=== PATIENT | female | born 1970 | race Caucasian/White ===

== ENCOUNTER 2020-05-15 14:56 | Emergency (ER) | payer OTHER, BC ==
[~2020-05-15] VITALS: Ht 170.2 cm; Wt 91.0 kg
[~2020-05-15 14:56] MED LIST: ALPR-624 PO; CLON-527 PO; LEVO40CA PO; PAT0.1OS EACHEYE; RIVA20TA PO; RIZA10TA27 PO
--- NOTE | 2020-05-15 16:42 | NUR ---
md fuentes at bedside. pt reports "leaky rectum". denies any primary or gi care. pt reports white and green drainage. raulito requests a set up for rectal exam.
[2020-05-15] MEDS ORDERED: ondansetron 4mg rapidly disintigrating tab PO ONE (16:50)
[2020-05-15 18:21] VITALS: BP 144/104
== END 2020-05-15 18:22 | disposition home or self-care (01) ==
LOC: ER 14:57
DX: R15.9 Full incontinence of feces (principal); G43.909 Migraine, unspecified, not intractable, without status migrainosus; F32.9 Major depressive disorder, single episode, unspecified; F20.9 Schizophrenia, unspecified; G89.29 Other chronic pain; F12.90 Cannabis use, unspecified, uncomplicated; Z86.73 Personal history of transient ischemic attack (TIA), and cerebral infarction without residual deficits; Z86.711 Personal history of pulmonary embolism; Z98.51 Tubal ligation status; Z98.890 Other specified postprocedural states; Z72.89 Other problems related to lifestyle; Z56.0 Unemployment, unspecified; Z91.041 Radiographic dye allergy status; Z88.5 Allergy status to narcotic agent; Z88.8 Allergy status to other drugs, medicaments and biological substances; Z79.899 Other long term (current) drug therapy
CPT/HCPCS: 99284

== ENCOUNTER 2020-06-15 10:38 | Emergency (ER) | payer OTHER, BC ==
[~2020-06-15] VITALS: Ht 167.6 cm; Wt 55.3 kg
--- NOTE | 2020-06-15 11:06 | NUR ---
HAILEE SUE FRIEND [phone]
--- NOTE | 2020-06-15 11:27 | NUR ---
MD Marie is at bedside with pt
[2020-06-15] MEDS ORDERED: ALPR-624 PO ×2 (11:57→16:24)
[2020-06-15 12:07] VITALS: BP 161/104
[2020-06-15] MEDS ORDERED: ONDA4TAB6 PO (12:10)
[2020-06-15] MEDS ORDERED: ASPI-83 PO (16:09)
[2020-06-15] MEDS ORDERED: DIPH-735 PO (16:09)
[2020-06-15] MEDS ORDERED: NITR0.4T51 SL (16:10)
[2020-06-15] MEDS ORDERED: VITA1CAP PO (16:12)
[2020-06-15] MEDS ORDERED: ONDA-103 PO (16:24)
== END 2020-06-15 12:08 | disposition home or self-care (01) ==
LOC: ER 10:39
DX: F41.9 Anxiety disorder, unspecified (principal); Z00.8 Encounter for other general examination; G89.29 Other chronic pain; F31.9 Bipolar disorder, unspecified; F20.9 Schizophrenia, unspecified; G43.909 Migraine, unspecified, not intractable, without status migrainosus; F12.90 Cannabis use, unspecified, uncomplicated; Z86.73 Personal history of transient ischemic attack (TIA), and cerebral infarction without residual deficits; Z86.711 Personal history of pulmonary embolism; Z98.51 Tubal ligation status; Z72.89 Other problems related to lifestyle; Z56.0 Unemployment, unspecified; Z91.041 Radiographic dye allergy status; Z88.8 Allergy status to other drugs, medicaments and biological substances; Z79.82 Long term (current) use of aspirin; Z79.899 Other long term (current) drug therapy
CPT/HCPCS: 99285

== ENCOUNTER 2020-06-15 14:58 | Emergency (ER) | payer OTHER, BC ==
[~2020-06-15] VITALS: Ht 167.6 cm; Wt 55.3 kg
[~2020-06-15 14:58] MED LIST changes: +ONDA4TAB6 PO
[2020-06-15 15:32] LABS: BASOPHILS # (AUTO) 0.1 X10'3 (0-0.2); BASOPHILS % (AUTO) 0.8 % (0-1); EOSINOPHILS # (AUTO) 0.1 X10'3 (0-0.9); EOSINOPHILS % (AUTO) 0.7 % (0-6); HEMATOCRIT 42.8 % (35.0-45.0); HEMOGLOBIN 14.6 g/dl (12.0-16.0); LYMPHOCYTES # (AUTO) 0.9 X10'3 (1.1-4.8); LYMPHOCYTES % (AUTO) 10.5 % (21-51); MEAN CORPUSCULAR VOLUME 94.1 FL (78-98); MEAN PLATELET VOLUME 7.4 FL (7.4-10.4); MONOCYTES # (AUTO) 0.6 X10'3 (0-0.9); NEUTROPHILS # (AUTO) 7.3 X10'3 (1.8-7.7); PLATELET COUNT 390 X10'3 (140-440); RED BLOOD COUNT 4.55 X10'6 (4.20-5.60); RED CELL DISTRIBUTION WIDTH 14.3 % (11.5-14.5)
[2020-06-15 15:41] LABS: ALANINE AMINOTRANSFERASE 103 U/L (12-78); ALBUMIN 3.8 G/DL (3.4-5.0); ALKALINE PHOSPHATASE 40 IU/L (46-116); ANION GAP 13 (8-16); ASPARTATE AMINO TRANSFERASE 83 U/L (10-37); BILIRUBIN,TOTAL 0.4 MG/DL (0.1-1.0); BLOOD UREA NITROGEN 10 MG/DL (7-18); BUN/CREATININE RATIO 7.8 (6.6-38.0); CALCIUM 10.1 MG/DL (8.5-10.1); CHLORIDE 107 MMOL/L (99-107); CREATININE 1.29 MG/DL (0.40-0.90); GLUCOSE 130 MG/DL (70-104); POTASSIUM 3.6 MMOL/L (3.5-5.1); SODIUM 140 MMOL/L (135-145); TOTAL CARBON DIOXIDE 20.5 MMOL/L (24-32); TOTAL PROTEIN 7.7 G/DL (6.4-8.2); eGFR 44 ML/MIN
[2020-06-15 15:49] LABS: ETHANOL < 0.010 GM/DL (0.0-0.010)
[2020-06-15] MEDS ORDERED: DIPH-735 PO (16:09)
[2020-06-15] MEDS ORDERED: ASPI-83 PO (16:09)
[2020-06-15] MEDS ORDERED: NITR0.4T51 SL (16:10)
[2020-06-15] MEDS ORDERED: VITA1CAP PO (16:12)
[2020-06-15 16:22] LABS: URINE HCG NEGATIVE (NEG)
[2020-06-15] MEDS ORDERED: ALPR-624 PO (16:24)
[2020-06-15] MEDS ORDERED: ONDA-103 PO (16:24)
[2020-06-15 16:28] LABS: CLARITY,URINE CLOUDY (Clear); COLOR,URINE YELLOW (Yellow); GLUCOSE, URINE NEGATIVE (Neg); KETONES,URINE NEGATIVE (Neg); LEUKOCYTE ESTERASE ,URINE NEGATIVE (Neg); NITRITES, URINE NEGATIVE (Neg); OCCULT BLOOD,URINE TRACE-INTACT (Neg); PH,URINE 5.5 (4.8-8.0); PROTEIN,URINE 30 mg/dl (Neg); UROBILINOGEN,URINE 0.2 E.U/dL (0.2-1.0)
[2020-06-15 16:29] LABS: UA COLLECTION TYPE CLN CATCH MIDSTREAM
[2020-06-15 16:34] LABS: URINE AMPHETAMINE SCREEN NEGATIVE (Neg); URINE BARBITUATE SCREEN NEGATIVE (Neg); URINE BENZODIAZEPINES SCREEN POSITIVE (Neg); URINE CANNABINOID SCREEN POSITIVE (Neg); URINE COCAINE SCREEN NEGATIVE (Neg); URINE METHADONE SCREEN NEGATIVE (Neg); URINE OPIATE SCREEN NEGATIVE (Neg); URINE PHENCYCLIDINE SCREEN NEGATIVE (Neg)
[2020-06-15 16:45] LABS: MUCUS STRANDS MANY /LPF (Neg); SQUAMOUS EPITHELIAL CELL,UR MANY /LPF (FEW)
[2020-06-15 16:48] LABS: CELLULAR CAST 0-4 /LPF (NEGATIVE); COARSE GRANULAR CAST 0-3 /LPF (NEGATIVE); FINE GRANULAR CAST 0-3 /LPF (NEGATIVE); HYALINE CASTS 0-3 /LPF (NEGATIVE)
[2020-06-15 16:50] LABS: BACTERIA,URINE 2+ /HPF (Neg); CAL OXALATE CRYSTALS 4+ /HPF (NEGATIVE); RBC,URINE 0-2 /HPF (0-2)
[2020-06-15] MEDS ORDERED: nitroGLYCERIN 0.4mg SUBLingual tab SL PRN (20:15)
[2020-06-15] MEDS ORDERED: ALPRAZolam 0.5mg tablet PO PRN (20:15)
--- NOTE | 2020-06-15 20:23 | NUR ---
PATIENT PACKET FAXED TO [facility]
[2020-06-15] MEDS ORDERED: ondansetron 4mg rapidly disintigrating tab PO PRN (20:25)
[2020-06-15] MEDS ORDERED: SUMAtriptan 25 MG tablet PO PRN (20:30)
[2020-06-15] MEDS ORDERED: diphenhydrAMINE 25mg capsule PO SCH (21:00)
[2020-06-15 23:38] VITALS: BP 149/82
[2020-06-16] MEDS ORDERED: clonazePAM 1mg tablet PO SCH (08:00)
[2020-06-16] MEDS ORDERED: aspirin 81mg tablet.DR PO SCH (08:00)
[2020-06-16] MEDS ORDERED: vitamin B comp w/Vit. C tab 1 TAB TABLET PO SCH (08:00)
--- NOTE | 2020-06-16 09:00 | NUR ---
Attempted to call patient regarding medications that were left in patients room last night at time of discharge. Unable to leave voicemail message. Will attempt to call back.
== END 2020-06-15 23:41 | disposition home or self-care (01) ==
LOC: ER 14:59
DX: F23 Brief psychotic disorder (principal); G43.909 Migraine, unspecified, not intractable, without status migrainosus; G89.29 Other chronic pain; F31.9 Bipolar disorder, unspecified; F20.9 Schizophrenia, unspecified; F12.90 Cannabis use, unspecified, uncomplicated; Z86.711 Personal history of pulmonary embolism; Z86.73 Personal history of transient ischemic attack (TIA), and cerebral infarction without residual deficits; Z98.51 Tubal ligation status; Z72.89 Other problems related to lifestyle; Z56.0 Unemployment, unspecified; Z88.5 Allergy status to narcotic agent; Z88.8 Allergy status to other drugs, medicaments and biological substances; Z79.82 Long term (current) use of aspirin; Z79.899 Other long term (current) drug therapy
CPT/HCPCS: 36415; 71045; 80053; 80305; 80320; 81001; 81025; 84443; 85025; 93005; 99285; Q0163

== ENCOUNTER 2020-06-18 16:15 | Emergency (ER) | payer OTHER, BC ==
[~2020-06-18] VITALS: Ht 167.6 cm; Wt 100.0 kg
[~2020-06-18 16:15] MED LIST changes: +ASPI-83 PO; +DIPH-735 PO; -LEVO40CA PO; +NITR0.4T51 SL; +ONDA-103 PO; -ONDA4TAB6 PO; -PAT0.1OS EACHEYE; -RIVA20TA PO; +VITA1CAP PO
[2020-06-18 17:24] LABS: BASOPHILS % (AUTO) 0.5 % (0-1); EOSINOPHILS # (AUTO) 0.1 X10'3 (0-0.9); EOSINOPHILS % (AUTO) 0.9 % (0-6); HEMATOCRIT 39.6 % (35.0-45.0); HEMOGLOBIN 13.2 g/dl (12.0-16.0); LYMPHOCYTES % (AUTO) 11.5 % (21-51); MEAN CORPUSCULAR HEMOGLOBIN 31.4 PG (27.0-31.0); MEAN CORPUSCULAR HGB CONC 33.3 g/dL (33.0-36.5); MEAN CORPUSCULAR VOLUME 94.2 FL (78-98); MEAN PLATELET VOLUME 7.7 FL (7.4-10.4); MONOCYTES # (AUTO) 0.7 X10'3 (0-0.9); MONOCYTES % (AUTO) 7.2 % (2-12); NEUTROPHILS # (AUTO) 7.3 X10'3 (1.8-7.7); NEUTROPHILS % (AUTO) 79.9 % (42-75); PLATELET COUNT 362 X10'3 (140-440); RED BLOOD COUNT 4.21 X10'6 (4.20-5.60); RED CELL DISTRIBUTION WIDTH 13.9 % (11.5-14.5); WHITE BLOOD COUNT 9.1 X10'3 (4.5-11.0)
[2020-06-18 17:36] LABS: ALANINE AMINOTRANSFERASE 105 U/L (12-78); ALBUMIN 3.7 G/DL (3.4-5.0); ALBUMIN/GLOBULIN RATIO 1.1 (1.1-1.5); ALKALINE PHOSPHATASE 32 IU/L (46-116); ANION GAP 11 (8-16); ASPARTATE AMINO TRANSFERASE 101 U/L (10-37); BILIRUBIN,TOTAL 0.4 MG/DL (0.1-1.0); BLOOD UREA NITROGEN 26 MG/DL (7-18); CALCIUM 10.3 MG/DL (8.5-10.1); CHLORIDE 106 MMOL/L (99-107); ETHANOL < 0.010 GM/DL (0.0-0.010); GLUCOSE 88 MG/DL (70-104); POTASSIUM 3.7 MMOL/L (3.5-5.1); SODIUM 140 MMOL/L (135-145); TOTAL PROTEIN 7.2 G/DL (6.4-8.2); eGFR 44 ML/MIN
[2020-06-18 18:03] LABS: URINE HCG NEGATIVE (NEG)
[2020-06-18 18:15] LABS: URINE AMPHETAMINE SCREEN NEGATIVE (Neg); URINE BARBITUATE SCREEN NEGATIVE (Neg); URINE BENZODIAZEPINES SCREEN POSITIVE (Neg); URINE CANNABINOID SCREEN POSITIVE (Neg); URINE COCAINE SCREEN NEGATIVE (Neg); URINE METHADONE SCREEN NEGATIVE (Neg); URINE OPIATE SCREEN NEGATIVE (Neg); URINE PHENCYCLIDINE SCREEN NEGATIVE (Neg)
--- NOTE | 2020-06-18 19:30 | NUR ---
med rec completed and faxed to pharmacy
--- NOTE | 2020-06-18 19:38 | NUR ---
pt meds taken to pharmacy / slep placed in chart
[2020-06-18] MEDS ORDERED: nitroGLYCERIN 0.4mg SUBLingual tab SL PRN (19:40)
[2020-06-18] MEDS ORDERED: SUMAtriptan 25 MG tablet PO PRN (19:40)
--- NOTE | 2020-06-18 19:41 | NUR ---
PT MOVED FROM MAIN ED TO ED OVERFLOW BED 21. PT IS CALM & COOPERATIVE. RN ASKS HER IF SHE HAS ANY SI AT THIS TIME- SHE DENIES WANTING TO HURT HERSELF BUT STILL FEELS "TERRORIZED INSIDE" & "MY MIND IS GOING A MILLION MILES AN HOUR." SHE REPORTS SHE "JUST WANTS TO SLEEP." RN VERBALIZED UNDERSTANDING OF FEELINGS AND ASSURED HER SAFETY. WILL CONTINUE TO MONITOR.
--- NOTE | 2020-06-18 19:45 | NUR ---
packet faxed to [facility]
--- NOTE | 2020-06-18 20:04 | NUR ---
PT REPORTING PAIN TO LEFT ANKLE- SAYS SHE FELL ON IT LAST NIGHT. REPORTING 7/10 PAIN. MILD SWELLING TO ANKLE. WILL MONITOR AND SEE WHAT CAN BE GIVEN.
[2020-06-18] MEDS: clonazePAM 1mg tablet PO SCH (20:44)
[2020-06-18] MEDS: diphenhydrAMINE 25mg capsule PO SCH (20:44)
--- NOTE | 2020-06-18 20:50 | NUR ---
MONITORING PT WHILE PRIMARY RN ON BREAK.
--- NOTE | 2020-06-18 20:53 | NUR ---
[facility] AT BEDSIDE.
--- NOTE | 2020-06-18 22:45 | NUR ---
Pt is sleeping, no s/s of distress noted.
--- NOTE | 2020-06-18 23:16 | NUR ---
MONITORING PT WHILE PRIMARY RN ON BREAK.
--- NOTE | 2020-06-18 23:36 | NUR ---
pt is confused, believes staff is talking about her daughter.
--- NOTE | 2020-06-19 00:48 | NUR ---
pt is sleeping, no s/s of distress noted.
--- NOTE | 2020-06-19 02:18 | NUR ---
pt is sleeping, no s/s of distress noted.
--- NOTE | 2020-06-19 04:23 | NUR ---
ASSUMING CARE OF PT. REPORT GIVEN BY LEILA GARCIA. PT APPEARS TO BE SLEEPING WITH NO SIGNS OF DISTRESS OR DISCOMFORT. WILL CONTINUE TO MONITOR.
[2020-06-19] MEDS ORDERED: acetaminophen 325mg tablet PO ONE (04:30)
--- NOTE | 2020-06-19 04:31 | NUR ---
PT REPORTING 7/10 ANKLE PAIN. UPDATED ED MD GAMA- VERBAL ORDER FOR TYLENOL 650MG.
[2020-06-19] MEDS: ALPRAZolam 0.5mg tablet PO PRN ×3 (04:43→15:21)
--- NOTE | 2020-06-19 04:45 | NUR ---
PT SHOWING SIGNS OF INCREASING AGITATION. XANAX GIVEN ALONG WITH ZOFRAN FOR NAUSEA. WILL CONTINUE TO MONITOR.
[2020-06-19] MEDS: ondansetron 4mg rapidly disintigrating tab PO PRN ×2 (04:48→15:20)
--- NOTE | 2020-06-19 06:58 | NUR ---
Pt resting on her back with her eyes closed. RR even and unlabored.
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
[2020-06-19] MEDS: clonazePAM 1mg tablet PO SCH ×2 (09:00→19:05)
[2020-06-19] MEDS: vitamin B comp w/Vit. C tab 1 TAB TABLET PO SCH (09:01)
[2020-06-19] MEDS: aspirin 81mg tab.chew PO SCH (09:02)
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
--- NOTE | 2020-06-19 09:46 | NUR ---
Pt requesting I call her for ileostomy supplies
--- NOTE | 2020-06-19 10:00 | NUR ---
Pt gave me a number to call her but it is the wrong number. She is unable to give me a correct number at this time. Pt also states in the past she has been on Eliquis but is no longer taking it. Pt is a very poor historian. She continues to sleep inbetween meals.
--- NOTE | 2020-06-19 12:00 | NUR ---
Pt given Imitrex not Zofran.
--- NOTE | 2020-06-19 12:00 | NUR ---
Pt agitated throwing paper towels. PRN alprazolam given as ordered. Pt states she is nauseous Zofran given as prescribed. Addendum: 06/19/20 at 1523 by ANA Pt given Imitrex for migraine; not Zofran too soon to give the Zofran. Pt agreed to wait for Zofran. Encouraged crackers and rest for now.
--- NOTE | 2020-06-19 13:40 | NUR ---
Pt ambulates to BR for ADL's. prior to having lunch.
--- NOTE | 2020-06-19 15:26 | NUR ---
Pt given Xanax due to agitation and anxiety. Pt up at nurses station labile and throwing things at ther bedside onto the floor. Notified ЮЛИЯ Cox upstairs that pt needs a medication evaluation.
--- NOTE | 2020-06-19 17:47 | NUR ---
Pt continues to rest quietly on her back. No s/s of distress. RR even and unlabored.
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
--- NOTE | 2020-06-19 18:58 | NUR ---
Patients bed is in direct view from the nursing station.
--- NOTE | 2020-06-19 19:08 | NUR ---
Klonopin 1mg given PO for acute anxiety.
--- NOTE | 2020-06-19 19:22 | NUR ---
Patient went to bathroom, she self forced herself to vomit. Patient took her scrub bottoms off. Patient will be redirected to bed when she exits bathroom.
[2020-06-19] MEDS ORDERED: diphenhydrAMINE 50 mg/ml inj IM ONE (19:50)
[2020-06-19] MEDS ORDERED: OLANZapine **IM** 10 mg inj. IM ONE (19:50)
--- NOTE | 2020-06-19 20:01 | NUR ---
Patient remains dellusional, patient believes day staff was making her scrub bathroom floor with no gloves.
--- NOTE | 2020-06-19 20:15 | NUR ---
Patient given IM Zyprexa 10 mg, in addition Benadryl 50mg IM. Patient speaking to voices in ether. Patient remains labile.
--- NOTE | 2020-06-19 20:36 | NUR ---
Patient is resting quietly on her right side.
[2020-06-19] MEDS: diphenhydrAMINE 25mg capsule PO SCH (21:08)
--- NOTE | 2020-06-19 21:35 | NUR ---
Pt. reported sudden onset of "chest pressure." She rates it at about a 6/10. Pt. reports cardiac hx. and uses nitro SL for angina. MD made aware. EKG done at bedside. While EKG was being performed, pt. was shaking purposely in spite of being directed to stay still. She was also grunting and speaking non-sensically. EKG was done successfully after a few redirection. MD translated EKG as NSR. Pt. reported that pain was subsiding prior to receiving nitro, but still requested 1 tab.
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
--- NOTE | 2020-06-19 22:00 | NUR ---
[facility] in [place], [place] will call in am to get Covid 19 and liver panel test results. A nurse to nurse report was given to Nurse Rain. A liver panel will be drawn at 0800 hours.
--- NOTE | 2020-06-19 23:00 | NUR ---
CLINICAL AUDIOLOGIST swab done for Covid 19, rapid test ordered. This is for placement. [facility] is tenatively accepting this patient if Covid 19 test is negative and AST enzyme is less than 100 in am.
--- NOTE | 2020-06-19 23:45 | NUR ---
Patients Rapid Covid test is back, it is negative. Patient is laying on her left side preparing to sleep. Patient had been up to void. Addendum: 06/20/20 at 0037 by RED [facility] [phone]
--- NOTE | 2020-06-20 00:24 | NUR ---
Patient sleeping quietly on her left side.
[2020-06-20] MEDS: ALPRAZolam 0.5mg tablet PO PRN ×2 (01:32→08:12)
--- NOTE | 2020-06-20 01:35 | NUR ---
Patient awoke, sat up and colored. Some agitation. Patient given Xanaxx 1mg PO. Patient remains delusional and paranoid. Patient expresses delusions about a nurses and other staff. The patient is reassured that she is in a safe place.
--- NOTE | 2020-06-20 02:07 | NUR ---
Patient sleeping low fowlers position on her left side.
--- NOTE | 2020-06-20 03:22 | NUR ---
Patient is sleeping low fowlers position in bed.
[2020-06-20 05:39] VITALS: BP 114/83
--- NOTE | 2020-06-20 05:50 | NUR ---
Patient awoke when vital signs were taken. She remains awake, sitting at bedside coloring.
--- NOTE | 2020-06-20 06:41 | NUR ---
Assumed care of pt. SHe is resting comfortably with even respirations on her left side
--- NOTE | 2020-06-20 08:03 | NUR ---
Pt continues to rest peacefully in her bed on the right side in no distress. Her respirations are even and unlabored
[2020-06-20] MEDS: aspirin 81mg tab.chew PO SCH (08:12)
[2020-06-20] MEDS: ondansetron 4mg rapidly disintigrating tab PO PRN (08:12)
[2020-06-20] MEDS: clonazePAM 1mg tablet PO SCH (08:12)
[2020-06-20] MEDS: vitamin B comp w/Vit. C tab 1 TAB TABLET PO SCH (08:12)
--- NOTE | 2020-06-20 08:18 | NUR ---
Pt is insistent that she can only take her medications with 3% milk. She is keeping lists of everyone who comes and goes and what is offered to her. She states she cannot eat her breakfast because all of the foods including cream of wheat, bananas, muffins, and eggs and madrigal make her throw up.
--- NOTE | 2020-06-20 08:33 | NUR ---
PT IN RESTROOM, GIVEN SUPPLIES FOR PERSONAL HYGIENE AND CLEAN SCRUBS. SOUNDS LIKE PATIENT IS VOMITING IN RESTROOM. PT IS PLEASANT ONE MOMENT AND IRRITATED THE NEXT WITH STAFF.
[2020-06-20 08:35] LABS: ALANINE AMINOTRANSFERASE 72 U/L (12-78); ALBUMIN 3.1 G/DL (3.4-5.0); ALBUMIN/GLOBULIN RATIO 0.9 (1.1-1.5); ALKALINE PHOSPHATASE 28 IU/L (46-116); ANION GAP 9 (8-16); ASPARTATE AMINO TRANSFERASE 43 U/L (10-37); BILIRUBIN,TOTAL 0.3 MG/DL (0.1-1.0); BLOOD UREA NITROGEN 12 MG/DL (7-18); BUN/CREATININE RATIO 11.7 (6.6-38.0); CHLORIDE 107 MMOL/L (99-107); CREATININE 1.03 MG/DL (0.40-0.90); GLUCOSE 90 MG/DL (70-104); POTASSIUM 3.7 MMOL/L (3.5-5.1); SODIUM 141 MMOL/L (135-145); TOTAL CARBON DIOXIDE 25.2 MMOL/L (24-32); TOTAL PROTEIN 6.6 G/DL (6.4-8.2); eGFR 57 ML/MIN
--- NOTE | 2020-06-20 08:56 | NUR ---
Pt completed a bird bath in the restroom
--- NOTE | 2020-06-20 09:56 | NUR ---
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 client is singing to herself and talking on the phone.
--- NOTE | 2020-06-20 10:23 | NUR ---
MOTHER KENNY, FATHER AMANUEL [phone]
--- NOTE | 2020-06-20 10:51 | NUR ---
Pt left the unit with all of her belongings including her medications from the pharmacy, her purse, keys and other personal items. She is being transported by [facility] and was escorted off the premises by Jenna from security.
== END 2020-06-20 10:56 ==
LOC: ER 16:16
DX: F23 Brief psychotic disorder (principal); G43.909 Migraine, unspecified, not intractable, without status migrainosus; G89.29 Other chronic pain; F31.9 Bipolar disorder, unspecified; F20.9 Schizophrenia, unspecified; F12.90 Cannabis use, unspecified, uncomplicated; Z86.73 Personal history of transient ischemic attack (TIA), and cerebral infarction without residual deficits; Z98.51 Tubal ligation status; Z98.890 Other specified postprocedural states; Z72.89 Other problems related to lifestyle; Z56.0 Unemployment, unspecified; Z91.041 Radiographic dye allergy status; Z88.5 Allergy status to narcotic agent; Z79.82 Long term (current) use of aspirin; Z79.899 Other long term (current) drug therapy
CPT/HCPCS: 36415; 80053; 80305; 80320; 81025; 85025; 87635; 93005; 96372; 99285; C9803; J1200; J3490; Q0163